=== PATIENT | female | born 1995 | race Caucasian/White ===

== ENCOUNTER 2017-10-21 19:01 | Emergency (ER) | payer OTHER ==
[2017-10-21 20:14] LABS: Hematocrit 37 % (35-47); Hemoglobin 12.5 g/dl (12.0-16.0); Mean Corpuscular HGB Conc 34 g/dl (31-36); Mean Corpuscular Hemoglobin 30 pg (27-31); Mean Corpuscular Volume 88 fL (80-97); Mean Platelet Volume 9 um3 (7.4-10.4); Red Blood Count 4.24 10^6/ul (4.0-5.4); Red Cell Distribution Width 14 % (10.5-15)
[2017-10-21 20:30] LABS: Albumin 3.5 g/dL (3.2-5.2); BUN/Creatinine Ratio 14.8 (8-20); Calcium 8.6 mg/dL (8.6-10.3); EGFR African American 185.1 (>60); EGFR Non-African American 143.9 (>60); Globulin 2.9 g/dL (2-4); Potassium 3.2 mmol/L (3.5-5.0); Total Bilirubin 0.4 mg/dL (0.2-1.0); Total Protein 6.4 g/dL (6.4-8.9)
[2017-10-21 21:38] LABS: Urine Bacteria Absent (Absent); Urine Bilirubin Negative (Negative); Urine Glucose Negative (Negative); Urine Nitrite Negative (Negative)
[2017-10-21] MEDS ORDERED: Nitrofurantoin Macrocrystals* 100 MG CAP PO ONE (22:00)
[2017-10-21] MEDS ORDERED: Potassium Chlor TAB* 20 MEQ TAB.ER PO ONE (23:42)
--- NOTE | 2017-10-21 23:51 | ED ---
Angelo Gomez Rebecca, scribed for Guido Borrego MD on 10/21/17 at 2343 . Progress - Progress Note Progress Note: Pt was signed out by Dr. Guerrero, pending dispo, awaiting US. - Results/Orders Results/Orders: US as read by radiologist: Single live intrauterine gestation of 14 weeks and 6 days gestational age on average by ultrasound with a predicted date of delivery by ultrasound of April. Perigestational soft tissues are unremarkable. Dr. Borrego reviewed this radiology report. Re-Evaluation - Re-Evaluation First Eval Re-Evaluation Time: 23:47 Comment: Discussed results with pt. Course/Dx - Course Course Of Treatment: Pt was signed out by Dr. Guerrero, pending dispo, awaiting US. US reveals a live intrauterine gestation. UA reveals UTI. In the ED course, pt received Macrodantin and potassium chloride. Pt will be D/C to home with Dx of UTI and with Rx for Macrobid. Her condition is stable and she understands and agrees with the D/C plan. - Diagnoses Provider Diagnoses: UTI (urinary tract infection), The documentation as recorded by the Angelo ordaz Rebecca accurately reflects the service I personally performed and the decisions made by Elmo lugo Abdul, MD.
[2017-10-22 00:03] VITALS: BP 103/61
--- NOTE | 2017-10-22 07:20 | RAD ---
INDICATION: Abdominal trauma, right adnexal and suprapubic pain. COMPARISON: There are no prior studies available for comparison. TECHNIQUE: Multiple real-time transabdominal images of the pelvis were obtained. FINDINGS: This exam demonstrates a single intrauterine in a variable lie. cardiac activity and limb motion are noted. The heart rate was 146 beats per minute. The placenta was located anterior along the body and fundus of the uterus. No perigestational hematoma is seen. There is no placenta previa. The amniotic fluid volume appeared to be within normal limits. The cervix measured 3.3 cm in length. Biparietal diameter (cm): 2.6 14 weeks 4 days Head circumference (cm): 10.2 14 weeks 6 days Abdominal circumference (cm): 8.6 15 weeks 0 days Femur length (cm): 1.6 14 weeks 5 days The composite estimated gestational age was 14 weeks 6 days. The predicted date of delivery is April 15, 2018. The estimated weight at this time is 106 grams plus or minus 16 grams. The anatomy was not examined on this early stage emergent ultrasound exam. The left ovary measured 3.4 x 1.9 x 3.5 cm. There is a corpus luteum cyst measuring 2.3 x 1.4 x 2.3 cm and a simple cyst adjacent to the ovary consistent with a paraovarian versus follicular cyst measuring 2.8 x 2.9 x 2.8 cm. The right ovary measured 2.6 x 1.4 x 1.4 cm. Vascular flow is documented within both ovaries. IMPRESSION: THERE IS A SINGLE INTRAUTERINE IN A VARIABLE PRESENTATION WITH A COMPOSITE ESTIMATED GESTATIONAL AGE OF 14 WEEKS 6 DAYS.
== END 2017-10-22 00:02 ==
LOC: ED 19:01
DX: O23.41 Unspecified infection of urinary tract in pregnancy, first trimester (principal); Z3A.14 14 weeks gestation of pregnancy
CPT/HCPCS: 36415; 76815; 80053; 81003; 81015; 84702; 85027; 86850; 86900; 86901; 87086; 99282; A9270-GY

== ENCOUNTER 2017-11-22 15:21 | Emergency (ER) | payer SELFPAY ==
[2017-11-22 15:54] VITALS: BP 96/52
--- NOTE | 2017-11-22 18:01 | UC ---
Jorge Gomez Nilda, scribed for Suleiman Dennison MD on 11/22/17 at 1631 . Respiratory Complaint HPI - HPI Summary HPI Summary: This patient is a 22 year old F [place] [facility] [place] family with a chief complaint of constant influenza like symptoms since yesterday. The patient rates the aching pain 4/10 in severity. Symptoms aggravated and alleviated by nothing. Patient reports fever, sore throat secondary to coughing , ear pain, headache, body aches, productive cough (white, yellowish), diarrhea , and wheezing. Per triage notes, pt is currently . - History of Current Complaint Chief Complaint: UCRespiratory Stated Complaint: COUGH,SORE THROAT Time Seen by Provider: 11/22/17 16:03 Hx Obtained From: Patient Hx Last Menstrual Period: 07/14/17 ?: Yes Onset/Duration: Sudden Onset, Lasting Days, Still Present Timing: Constant Severity Currently: Moderate Pain Intensity: 4 Pain Scale Used: 0-10 Numeric Character: Cough: Productive, Sputum Description: - white/yellowish Aggravating Factors: Nothing Alleviating Factors: Nothing Associated Signs And Symptoms: Positive: Fever, Wheezing - Allergies/Home Medications Allergies/Adverse Reactions: Allergies Allergy/AdvReac Type Severity Reaction Status Date / Time No Known Allergies Allergy Verified 11/22/17 15:54 PMH/Surg Hx/FS Hx/Imm Hx Respiratory History: Asthma - Surgical History Surgical History: None - Family History Known Family History: Negative: Cardiac Disease, Hypertension, Diabetes - Social History Alcohol Use: None Substance Use Type: None Smoking Status (MU): Light Every Day Tobacco Smoker Have You Smoked in the Last Year: No - Immunization History Most Recent Influenza Vaccination: not this season Most Recent Tetanus Shot: october 2015 Most Recent Pneumonia Vaccination: never Review of Systems Constitutional: Fever ENT: Sore Throat, Ear Ache Respiratory: Cough, Other - wheezing Gastrointestinal: Diarrhea Musculoskeletal: Other: - body aches Neurological: Headache All Other Systems Reviewed And Are Negative: Yes Physical Exam Triage Information Reviewed: Yes Vital Signs: Initial Vital Signs Temp 99.6 F 11/22/17 15:48 Pulse 115 11/22/17 15:48 Resp 14 11/22/17 15:48 BP 96/52 11/22/17 15:48 Pulse Ox 100 11/22/17 15:48 Vital Signs Reviewed: Yes - Additional Comments General: well-appearing, no pain distress Skin: warm, color reflects adequate perfusion, dry Head: normal Eyes: EOMI, RAMYA ENT: TM normal, + rhinorrhea, Mild erythema posterior pharynx Neck: supple, nontender, + anterior cervical lymphadenopathy Respiratory: CTA, breath sounds present Cardiovascular: tachycardic Abdomen: soft, nontender Bowel: present Musculoskeletal: normal, strength/ROM intact Neurological: normal, sensory/motor intact, A&O x3 Psychological: affect/mood appropriate Diagnostic Evaluation - Laboratory O2 Sat by Pulse Oximetry: 100 Respiratory Course/Dx - Course Course Of Treatment: Medications reviewed. - Differential Dx/Diagnosis Provider Diagnoses: INFLUENZA A Discharge - Discharge Plan Condition: Stable Disposition: HOME Prescriptions: Oseltamivir CAP* [Tamiflu CAP*] 75 mg PO BID #10 cap Patient Education Materials: Influenza (ED) Forms: *Work Release Referrals: Norma Leija [Primary Care Provider] - Additional Instructions: FOLLOW UP WITH YOUR DOCTOR. GET RECHECKED FOR ANY WORSENING OF YOUR CONDITION OR QUESTIONS OR CONCERNS. The documentation as recorded by the Jorge ordaz Nilda accurately reflects the service I personally performed and the decisions made by me, Suleiman Dennison MD.
== END 2017-11-22 17:17 | disposition home or self-care (01) ==
LOC: UCEAST 15:21
DX: J10.1 Influenza due to other identified influenza virus with other respiratory manifestations (principal); J45.909 Unspecified asthma, uncomplicated; F17.290 Nicotine dependence, other tobacco product, uncomplicated
CPT/HCPCS: 87502; 99212; G0463

== ENCOUNTER 2018-04-13 07:18 | Inpatient (IN) | payer OTHER ==
--- NOTE | 2018-04-13 08:47 | HP ---
General Information - General Information Maternal Age: 22 Grav: 3 Para: 2 SAB: 0 IEA: 0 Estimated Due Date: 04/20/18 Determined By: LMP Gestational Age in Weeks and Days: 39 Weeks and 0 Days Maternal Blood Type and Rh: B Positive - Results this Serology/RPR Result: Non-Reactive Rubella Result: Non-Immune HBsAg Result: Negative HIV Result: Negative GBS Culture Result: Negative Past Medical History Delivery History: Hx Complicated Vaginal Delivery, See Records Pertinent Past Medical History: See Records Pertinent Past Surgical History: None Pertinent Family History: Non-Contributory - Antepartal Records Antepartal Records: Reviewed, Complicated by: - Tobacco use - fob and pt quitting now Review of Systems Constitutional: Comfortable CV Complaint: No Respiratory: Shortness of Breath: No Gastrointestinal: No Nausea/Vomiting Genitourinary: No Dysuria, No Bleeding, No Leaking Fluid Musculoskeletal: Back Pain - minimal Movement: Normal Exam Allergies/Adverse Reactions: Allergies No Known Allergies Allergy (Verified 04/09/18 20:18) - Measurements Height: 5 ft 11 in Weight: 220 lb Weight in lbs: 220 Body Mass Index (BMI): 30.7 Pre- Weight: 185 lb Weight Gained This : 35 lbs and 0 ozs - Exam Abdomen: No Upper Quadrant Pain Breast: Breast Exam Deferred Extremities: No Edema Heart: Normal Rhythm/Heart Sounds HEENT: No Significant Findings Targeted Exam Findings Cervical Exam: 3cm Effacement: 80% Station: -2 Presenting Part: Vertex Membrane Status: AROM Amniotic Fluid Evaluation: Clear EFM Findings - External Monitor Findings Baseline Heart Rate: 135 External Monitor Findings: Accelerations Present, No Pattern of Variable or Late Decelerations, Variability Moderate, Baseline Stable Contractions: Irregular Assessment/Plan - Reason for Visit Reason for Visit: @39+wks here for Induction at term. GBS+. Tobacco use - says she's quitting today - Obstetrical Risk Factors Obstetrical Risk Factors: Tobacco Use - Plan Plan: Induction
[2018-04-13] MEDS ORDERED: Oxytocin in LR* 20 UNITS/1,000 ML BAG IVPB SCH ×2 (12:00→15:00)
[2018-04-13 12:09] LABS: ABS Basophils 0 10^3/ul (0-0.2); ABS Eosinophils 0.1 10^3/ul (0-0.6); ABS Lymphocytes 1.9 10^3/ul (1.0-4.8); ABS Monocytes 1.1 10^3/ul (0-0.8); ABS Neutrophils 9.9 10^3/ul (1.5-7.7); ABS Nucleated RBC 0 10^3/ul; Eosinophil % 0.5 % (0-6); Hematocrit 30 % (35-47); Hemoglobin 9.5 g/dl (12.0-16.0); Mean Corpuscular HGB Conc 32 g/dl (31-36); Mean Corpuscular Hemoglobin 26 pg (27-31); Mean Corpuscular Volume 81 fL (80-97); Mean Platelet Volume 8.9 um3 (7.4-10.4); Nucleated Red Blood Cells % 0; Platelet Count 165 10^3/ul (150-450); Red Blood Count 3.67 10^6/ul (4.0-5.4); Red Cell Distribution Width 15 % (10.5-15)
[2018-04-13] MEDS ORDERED: OBEPIDURAL* 250 ML EPIDURAL ONE (13:32)
[2018-04-13] MEDS ORDERED: Famotidine TAB* 20 MG PO PRN (14:04)
[2018-04-13] MEDS ORDERED: Sodium Citrate/Citric Acid* 15 ML UDC PO PRN (14:04)
[2018-04-13] MEDS ORDERED: Phenylephrine IV* 40 MCG/ML 10 ML SYRINGE IV PUSH PRN ×2 (14:04)
[2018-04-13] MEDS ORDERED: Ibuprofen TAB* 600 MG PO PRN (14:33)
[2018-04-13] MEDS ORDERED: Dibucaine 1% 28.35 GM TUBE PR PRN (14:33)
[2018-04-13] MEDS ORDERED: Acetaminophen TAB* 325 MG PO PRN (14:33)
[2018-04-13] MEDS ORDERED: Glycerin ADULT SUPP PR PRN (14:33)
[2018-04-13] MEDS ORDERED: Witch Hazel PAD* JAR TOPICAL PRN (14:33)
[2018-04-13] MEDS ORDERED: OBEPIDURAL* 250 ML EPIDURAL SCH (15:00)
[2018-04-13] MEDS: Simethicone TAB* 80 MG TAB.CHEW PO SCH ×2 (19:51→22:22)
[2018-04-13] MEDS: Docusate CAP* 100 MG PO SCH (22:22)
[2018-04-14 06:48] LABS: ABS Basophils 0 10^3/ul (0-0.2); ABS Eosinophils 0.1 10^3/ul (0-0.6); ABS Lymphocytes 2.8 10^3/ul (1.0-4.8); ABS Monocytes 1.2 10^3/ul (0-0.8); ABS Neutrophils 8.4 10^3/ul (1.5-7.7); ABS Nucleated RBC 0 10^3/ul; Eosinophil % 0.7 % (0-6); Hematocrit 27 % (35-47); Hemoglobin 9.1 g/dl (12.0-16.0); Lymphocyte % 22.1 % (25-47); Mean Corpuscular HGB Conc 33 g/dl (31-36); Mean Corpuscular Hemoglobin 27 pg (27-31); Mean Corpuscular Volume 81 fL (80-97); Mean Platelet Volume 8.9 um3 (7.4-10.4); Nucleated Red Blood Cells % 0.1; Platelet Count 134 10^3/ul (150-450); Red Blood Count 3.39 10^6/ul (4.0-5.4); Red Cell Distribution Width 15 % (10.5-15); White Blood Count 12.5 10^3/ul (3.5-10.8)
[2018-04-14] MEDS: Simethicone TAB* 80 MG TAB.CHEW PO SCH (08:38)
[2018-04-14] MEDS ORDERED: Ferrous Gluconate TAB* 324 MG TAB PO SCH (09:00)
[2018-04-14] MEDS: Docusate CAP* 100 MG PO SCH (10:47)
[2018-04-14 11:11] VITALS: BP 113/62
== END 2018-04-14 15:18 | disposition home or self-care (01) | DRG 560 ==
LOC: MCHOBOUT 07:18 → MCHOB 08:03
PROVIDERS: ADMIT Obstetrics & Gynecology; ATTEND Obstetrics & Gynecology
PROC: 10907ZC Drainage of Amniotic Fluid, Therapeutic from Products of Conception, Via Natural or Artificial Opening (ICD-10-PCS; principal; 2018-04-13)
PROC: 10E0XZZ Delivery of Products of Conception, External Approach (ICD-10-PCS; 2018-04-13)
PROC: 4A1HX4Z Monitoring of Products of Conception, Cardiac Electrical Activity, External Approach (ICD-10-PCS; 2018-04-13)
DX: O69.81X0 Labor and delivery complicated by cord around neck, without compression, not applicable or unspecified (principal); O99.824 Streptococcus B carrier state complicating childbirth; O99.334 Smoking (tobacco) complicating childbirth; F17.210 Nicotine dependence, cigarettes, uncomplicated; Z3A.39 39 weeks gestation of pregnancy; Z37.0 Single live birth; O90.81 Anemia of the puerperium
CPT/HCPCS: 36415; 85025; 86850; 86900; 86901; A9270-GY

== ENCOUNTER 2021-04-08 23:52 | Inpatient (IN) ==
[2021-04-09] MEDS ORDERED: Buffered Lidocaine 1% SYRIN 1 ml INTRADERM ONE (00:32)
[2021-04-09] MEDS ORDERED: Lactated Ringers 1000 ml BAG 1,000 ML IV ONE (00:32)
[2021-04-09] MEDS ORDERED: Lactated Ringers 1000 ml BAG 1,000 ML IV SCH ×2 (01:00→04:00)
[2021-04-09] MEDS ORDERED: Oxytocin in LR 20 UNITS/1,000 ML BAG IVPB ONE (02:56)
[2021-04-09 03:36] LABS: Urine Benzodiazepine Screen None Detected (None Detect); Urine Cannabinoids Screen None Detected (None Detect); Urine Opiates Screen None Detected (None Detect)
[2021-04-09] MEDS ORDERED: Witch Hazel PAD JAR TOPICAL PRN (03:45)
[2021-04-09] MEDS ORDERED: Dibucaine 1% OINT 28.35 GM TUBE PR PRN (03:45)
[2021-04-09] MEDS ORDERED: Glycerin ADULT 2.4 gm SUPP PR PRN (03:45)
[2021-04-09] MEDS ORDERED: Oxytocin in LR 20 UNITS/1,000 ML BAG IVPB SCH (04:00)
[2021-04-09] MEDS ORDERED: Ammonia Inhalant 1 EA AMP ONE (04:00)
[2021-04-10 07:45] LABS: ABS Basophils 0.1 10^3/ul (0-0.2); ABS Eosinophils 0.1 10^3/ul (0-0.6); ABS Lymphocytes 3.2 10^3/ul (1.0-4.8); ABS Monocytes 0.8 10^3/ul (0-0.8); ABS Neutrophils 9.4 10^3/ul (1.5-7.7); Eosinophil % 0.7 %; Hematocrit 36 % (35-47); Lymphocyte % 23.4 %; Mean Corpuscular HGB Conc 33 g/dL (31-36); Mean Corpuscular Hemoglobin 28 pg (27-31); Mean Corpuscular Volume 85 fL (80-97); Mean Platelet Volume 9.6 fL (7.4-10.4); Platelet Count 178 10^3/uL (150-450); Red Blood Count 4.26 10^6 /uL (3.70-4.87); Red Cell Distribution Width 15 % (10-15); White Blood Count 13.5 10^3/uL (3.5-10.8)
[2021-04-10 07:55] VITALS: BP 118/68
== END 2021-04-10 11:57 | disposition home or self-care (01) ==
LOC: MCHOBOUT 23:52 → MCHOB 04-09 00:31
PROVIDERS: ADMIT Midwife; ATTEND Midwife

== ENCOUNTER 2022-04-04 07:47 | Inpatient (IN) ==
[2022-04-04] MEDS ORDERED: Buffered Lidocaine 1% SYRIN 1 ml INTRADERM ONE (09:37)
[2022-04-04] MEDS ORDERED: Lactated Ringers 1000 ml BAG 1,000 ML IV ONE (09:37)
[2022-04-04] MEDS ORDERED: Lactated Ringers 1000 ml BAG 1,000 ML IV SCH (10:00)
[2022-04-04] MEDS: Oxytocin in LR 20 UNITS/1,000 ML BAG IVPB SCH ×2 (10:05→19:17)
[2022-04-04 10:06] LABS: Hematocrit 25 % (35-47); Hemoglobin 7.6 g/dL (12.0-16.0); Mean Corpuscular HGB Conc 30 g/dL (31-36); Mean Corpuscular Hemoglobin 23 pg (27-31); Mean Corpuscular Volume 76 fL (80-97); Mean Platelet Volume 8.2 fL (7.4-10.4); Platelet Count 204 10^3/uL (150-450); Red Blood Count 3.31 10^6 /uL (3.70-4.87); Red Cell Distribution Width 18 % (10-15); White Blood Count 11.9 10^3/uL (3.5-10.8)
[2022-04-04 10:52] LABS: ABS Eosinophils 0.1 10^3/ul (0-0.6); ABS Lymphocytes 1.5 10^3/ul (1.0-4.8); ABS Neutrophils 9.3 10^3/ul (1.5-7.7); Eosinophil % 0.5 %; Lymphocyte % 12.5 %; Nucleated Red Blood Cells % 0.2
[2022-04-04 11:53] LABS: Urine Benzodiazepine Screen None Detected (None Detect); Urine Cannabinoids Screen None Detected (None Detect); Urine Opiates Screen None Detected (None Detect)
[2022-04-04] MEDS ORDERED: Dibucaine 1% OINT 28.35 GM TUBE PR PRN (16:55)
[2022-04-04] MEDS ORDERED: Glycerin ADULT 2.4 gm SUPP PR PRN (16:55)
[2022-04-04] MEDS ORDERED: Witch Hazel PAD JAR TOPICAL PRN (16:55)
[2022-04-04] MEDS ORDERED: Oxytocin in LR 20 UNITS/1,000 ML BAG IVPB SCH (17:00)
[2022-04-04] MEDS ORDERED: Iron Sucrose 200 MG in NS 0.9% 100 ml BAG 100 ML IVPB ONE (18:32)
[2022-04-05 07:08] LABS: ABS Basophils 0.1 10^3/ul (0-0.2); ABS Eosinophils 0.1 10^3/ul (0-0.6); ABS Lymphocytes 1.3 10^3/ul (1.0-4.8); ABS Monocytes 0.9 10^3/ul (0-0.8); ABS Neutrophils 7.2 10^3/ul (1.5-7.7); Eosinophil % 1.3 %; Hematocrit 23 % (35-47); Hemoglobin 7.4 g/dL (12.0-16.0); Lymphocyte % 13.7 %; Mean Corpuscular HGB Conc 32 g/dL (31-36); Mean Corpuscular Hemoglobin 24 pg (27-31); Mean Corpuscular Volume 76 fL (80-97); Mean Platelet Volume 8.7 fL (7.4-10.4); Nucleated Red Blood Cells % 0.2; Platelet Count 163 10^3/uL (150-450); Red Blood Count 3.04 10^6 /uL (3.70-4.87); Red Cell Distribution Width 18 % (10-15); White Blood Count 9.6 10^3/uL (3.5-10.8)
[2022-04-06] MEDS ORDERED: Pneumococcal Vac 23-Polyvalent IM ONE (09:00)
[2022-04-06 18:23] VITALS: BP 139/63
[2022-04-06] MEDS ORDERED: Albuterol HFA INHALER 8 gm MDI INH PRN (19:24)
== END 2022-04-06 23:30 | disposition home or self-care (01) | DRG 560 ==
LOC: MCHOBOUT 07:47 → MCHOB 08:02
PROVIDERS: ADMIT Midwife; ATTEND Midwife

== ENCOUNTER 2023-12-07 01:55 | Inpatient (IN) ==
[2023-12-07] MEDS ORDERED: Lidocaine 1% VIAL 10 MG/ML 30 ML VIAL INJ PRN (03:06)
[2023-12-07] MEDS ORDERED: Promethazine INJ(RESTRICTED) 25 MG/ML 1 ml VIAL IV PRN (03:06)
[2023-12-07] MEDS ORDERED: Buffered Lidocaine 1% SYRIN 1 ml INTRADERM ONE (03:06)
[2023-12-07] MEDS ORDERED: Lactated Ringers 1000 ml BAG 1,000 ML IV ONE (03:06)
[2023-12-07] MEDS ORDERED: Lactated Ringers 1000 ml BAG 1,000 ML IV SCH ×2 (04:00→09:00)
[2023-12-07 04:10] LABS: ABS Lymphocytes 1.3 10^3/uL (1.0-4.8); ABS Monocytes 0.8 10^3/uL (0.0-0.9); ABS Neutrophils 9.5 10^3/uL (1.5-7.6); Eosinophil % 0.2 %; Hematocrit 34.7 % (35-45); Hemoglobin 11.4 g/dL (11.5-14.3); Lymphocyte % 11.3 %; Mean Corpuscular Hemoglobin 28.2 pg (27-33); Mean Corpuscular Volume 85.6 fL (80-97); Platelet Count 183 10^3/uL (150-450); Red Blood Count 4.05 10^6/uL (3.63-4.92); White Blood Count 11.7 10^3/uL (3.8-11.8)
[2023-12-07 04:28] LABS: Urine Benzodiazepine Screen None Detected (None Detect); Urine Opiates Screen None Detected (None Detect)
[2023-12-07] MEDS ORDERED: Oxytocin in LR 20,000 MILLI.UNIT/1,000 ML BAG IV ONE (05:26)
[2023-12-07] MEDS ORDERED: Dibucaine 1% OINT 28.35 GM TUBE PR PRN (08:32)
[2023-12-07] MEDS ORDERED: Witch Hazel PAD JAR TOPICAL PRN (08:32)
[2023-12-07] MEDS ORDERED: Oxytocin in LR 20,000 MILLI.UNIT/1,000 ML BAG IV SCH (08:35)
[2023-12-08 07:00] LABS: ABS Eosinophils 0.1 10^3/uL (0.0-0.5); ABS Lymphocytes 2.3 10^3/uL (1.0-4.8); ABS Monocytes 0.8 10^3/uL (0.0-0.9); ABS Neutrophils 7.6 10^3/uL (1.5-7.6); Hematocrit 33.2 % (35-45); Lymphocyte % 20.9 %; Mean Corpuscular Hemoglobin 28.3 pg (27-33); Mean Corpuscular Volume 85.6 fL (80-97); Mean Platelet Volume 8.6 fL (7.5-11.2); Platelet Count 180 10^3/uL (150-450); Red Blood Count 3.88 10^6/uL (3.63-4.92); Red Cell Distribution Width 19.8 % (12-17); White Blood Count 10.8 10^3/uL (3.8-11.8)
[2023-12-08 08:46] VITALS: BP 123/63
== END 2023-12-08 14:20 | disposition home or self-care (01) | DRG 560 ==
LOC: MCHOBOUT 01:55 → MCHOB 03:07
PROVIDERS: ADMIT Registered Nurse; ATTEND Registered Nurse